=== PATIENT | female | born 1965 | race Caucasian/White ===

== ENCOUNTER 2020-05-25 19:18 | Emergency (ER) | payer OTHER, SELFPAY ==
[2020-05-25 19:18] VITALS: BP 146/89; PULSE 90; RESP 18; TEMP 36.1; O2SAT 99; BMI 25.8
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
[2020-05-25] MEDS: Diphth,Pertuss(Acell),Tet Vac 0.5 ML Vial IM (20:02)
[2020-05-25 20:37] VITALS: RESP 18
[2020-05-25] MEDS: oxyCODONE 5 MG Tablet PO (22:45)
[2020-05-25 22:50] VITALS: RESP 20
[2020-05-25] MEDS: HYDROmorphone 1 MG/ML Syringe IM (23:10)
[2020-05-25] MEDS: Ondansetron ODT 4 MG Tablet PO (23:23)
--- NOTE | 2020-05-26 00:05 | ED.DEP ---
ED Disposition - Plan for ED Patient: Instructions: ED Laceration All Closures Prescriptions: Cephalexin [Keflex] 500 mg PO Q6 #40 cap Prescription Printed Oxycodone HCl/Acetaminophen [Percocet 5/325] 1 tab PO Q6H PRN PRN 3 Days #12 tab PRN Reason: Pain Prescription Printed Ondansetron [Zofran Odt] 4 mg PO Q8H PRN PRN #10 tab PRN Reason: Nausea Prescription Printed Referrals: Raymond Kim MD [Primary Care Provider] - Aparna Arthur DO [STAFF PHYSICIAN] -
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
[2020-05-26] MEDS: Ceftriaxone 1 GM Vial IM (00:27)
[2020-05-26 00:34] VITALS: BP 125/85; PULSE 76; RESP 16; O2SAT 93
== END 2020-05-26 00:53 | disposition home or self-care (01) ==
LOC: ED 20:03
PROVIDERS: Emergency Provider Emergency Medicine; PCP Internal Medicine
DX: S01.112A Laceration without foreign body of left eyelid and periocular area, initial encounter (principal); S01.21XA Laceration without foreign body of nose, initial encounter; S81.012A Laceration without foreign body, left knee, initial encounter; V86.55XA Driver of 3- or 4- wheeled all-terrain vehicle (ATV) injured in nontraffic accident, initial encounter; Z23 Encounter for immunization
CPT/HCPCS: 12004; 12014; 70450; 71045; 72125; 73564; 90471; 90715; 96372; 99285